=== PATIENT | female | born 1995 | race Two or more races ===

== ENCOUNTER 2021-06-18 14:07 | Emergency (ER) | payer OTHER ==
[~2021-06-18] VITALS: Ht 170.2 cm; Wt 78.0 kg
--- NOTE | 2021-06-18 14:49 | NUR ---
PATIENT TO ROOM FROM LOBBY
--- NOTE | 2021-06-18 15:00 | NUR ---
PT REPORTS COMING INTO ED TODAY DUE TO ABDOMINAL PAIN AND BLACK TARRY STOOLS FOR A FEW DAYS. STATES SHES HAD SIGNIFICANT AMOUNTS OF NAUSEA AND THREW UP YESTERDAY, DENIES VOMITTING TODAY. PT REPORT LOWER ABDOMINAL PAIN. DENIES DIARRHEA. STATES SHE FEELS FATIGUED WITH THESE SYMPTOMS AND HER PCP TOLD HER TO COME IN DUE TO CONCERN FOR A GI BLEED. PT PLACED ON MONITORING, BED IN LOWEST, RAILS ENGAGED, CALL LIGHT ON LAP, PROVIDED WARM BLANKETS FOR COMFORT, WCTM.
--- NOTE | 2021-06-18 16:10 | NUR ---
pt walked to bathroom and obtained UA. pt nad, back to resting on gurney, SO at bs, denies additional questions or needs at this time. wctm. waiting for lab results.
[2021-06-18 16:11] LABS: BASOPHILS % (AUTO) 0 % (0-1); EOSINOPHILS % (AUTO) 1 % (1-7); LYMPHOCYTES % (AUTO) 35 % (22-44); MEAN CORPUSCULAR HEMOGLOBIN 28.4 pg (27.0-34.8); MEAN CORPUSCULAR HGB CONC 33.5 g/dL (32.4-35.8); MEAN PLATELET VOLUME 7.4 fL (7.4-10.4); MONOCYTES % (AUTO) 6 % (2-9); NEUTROPHILS % (AUTO) 57 % (42-75); PLATELET COUNT 295 x10^3/uL (130-400); RED BLOOD COUNT 4.84 x10^6/uL (3.82-5.3); RED CELL DISTRIBUTION WIDTH 14.1 % (9.6-15.2)
[2021-06-18 16:22] LABS: ALANINE AMINOTRANSFERASE 14 U/L (12-78); ALBUMIN 3.4 g/dL (3.4-5.0); ANION GAP 4 mmol/L (5-15); CALCIUM 9.1 mg/dL (8.5-10.1); CHLORIDE 108 mmol/L (98-107); CREATININE 0.77 mg/dL (0.55-1.02); INTERNATIONAL NORMALIZED RATIO 0.99 (0.93-1.1); PROTHROMBIN TIME 10.6 Seconds (9.6-11.5)
[2021-06-18 16:24] LABS: ALKALINE PHOSPHATASE 79 U/L (45-117); BILIRUBIN,TOTAL 0.4 mg/dL (0.2-1.0); TOTAL PROTEIN 7.6 g/dL (6.4-8.2)
[2021-06-18] MEDS ORDERED: SODIUM CHLORIDE FLUSH 10ML SYR IVF ONE (16:30)
[2021-06-18 17:05] LABS: MICROSCOPIC NOT IND
--- NOTE | 2021-06-18 17:15 | NUR ---
pt up and ambulatory to restroom with a smooth and steady gait. nad, appears comfortable, denies additional needs at this time. chart up for recheck at this time.
[2021-06-18 18:16] VITALS: BP 117/74
--- NOTE | 2021-06-18 18:16 | NUR ---
Patient/Caregiver given discharge instructions and they have confirmed that they understand the instructions. Patient ambulatory with steady gait. NAD, all questions answered appropriately, denies additional needs at this time. No personal belongings left in room after discharge.
== END 2021-06-18 18:45 | disposition home or self-care (01) ==
LOC: ED 15:08
DX: R10.13 Epigastric pain (principal); R10.30 Lower abdominal pain, unspecified; R11.10 Vomiting, unspecified; R53.83 Other fatigue
CPT/HCPCS: 36415; 80053; 81003; 83690; 85025; 85610; 85730; 99283